=== PATIENT | female | born 1985 | race African-American/Black ===

== ENCOUNTER 2023-10-15 14:16 | Emergency (ER) | payer MEDICAID, OTHER ==
[~2023-10-15] VITALS: Ht 167.6 cm; Wt 59.0 kg
[2023-10-15 14:21] VITALS: TEMP 99
[2023-10-15 14:42] VITALS: PULSE 74; RESP 18; O2SAT 98
[2023-10-15] MEDS: IPRATROPIUM BROMIDE (0.02%) 0.5MG/2.5ML NEB HHN STA (14:42)
[2023-10-15] MEDS: ALBUTEROL (0.083%) 2.5MG/3ML NEB HHN SCH (14:42)
[2023-10-15] MEDS: MAGNESIUM 2 G PREMIX 50 ML IV ONE (15:06)
[2023-10-15] MEDS: METHYLPREDNISOLONE SOD SUCC 125MG/2ML (ACT-O-VIAL) IV STA (15:06)
[2023-10-15 15:18] LABS: BASOPHILS % 0.6 % (0.0-2.0); EOSINOPHILS % 1.5 % (0.0-5.0); HEMATOCRIT. 33.7 % (36.0-48.0); HEMOGLOBIN. 11.6 g/dL (12.0-16.0); LYMPHOCYTES % 34.6 % (20.0-50.0); MEAN CORPUSCULAR HEMOGLOBIN 32.9 pg (28.0-32.0); MEAN CORPUSCULAR HGB CONC 34.4 g/dL (31.0-37.0); MEAN CORPUSCULAR VOLUME 95.6 fL (81.0-99.0); MEAN PLATELET VOLUME 8.1 fl (7.4-10.4); MONOCYTES % 6.3 % (2.0-8.0); PLATELET 181 x1000/uL (130-400); RED BLOOD CELL COUNT 3.52 mill/uL (4.2-5.4); RED CELL DISTRIBUTION WIDTH 14.8 % (11.6-14.6); WHITE BLOOD COUNT 6.5 x1000/uL (4.5-11.0)
[2023-10-15 15:25] LABS: CHLORIDE 110 mEq/L (98-107); POTASSIUM 3.2 mEq/L (3.5-5.1); SODIUM 137 mEq/L (136-145)
[2023-10-15 15:26] LABS: CARBON DIOXIDE 25 mEq/L (21-32)
[2023-10-15 15:27] LABS: CALCIUM 8.8 mg/dL (8.7-10.4)
[2023-10-15 15:31] LABS: CREATININE 0.6 mg/dL (0.6-1.0); GLUCOSE 87 mg/dL (70-105); HCG SCREEN NEGATIVE
[2023-10-15 15:32] LABS: UREA NITROGEN BLOOD 7 mg/dL (9-23)
[2023-10-15] MEDS: POTASSIUM CHLORIDE 20MEQ TABLET SR PO ONE (16:06)
[2023-10-15] MEDS ORDERED: ALBUTEROL (0.083%) 2.5MG/3ML NEB HHN STA (16:12)
[2023-10-15 18:15] VITALS: BP 103/48; PULSE 98; RESP 20
[2023-10-15] MEDS ORDERED: P20 MT (18:19)
[2023-10-15] MEDS ORDERED: ALBU90AE INH (18:19)
== END 2023-10-15 18:30 | disposition home or self-care (01) ==
LOC: ER 14:16 → CANBEDREQ 15:24 → ER 18:30
DX: J45.901 Unspecified asthma with (acute) exacerbation (principal); E87.6 Hypokalemia
CPT/HCPCS: 80048; 84703; 85025; 36415; 71045; 93005; 94644; 96365; 96375; 99285; J3475; J2930; Z7610 ×2

== ENCOUNTER 2023-12-27 09:46 | Emergency (ER) | payer OTHER ==
[~2023-12-27] VITALS: Ht 160 cm; Wt 66.0 kg
[~2023-12-27 09:46] MED LIST: ALBU90AE INH; P20 MT
[2023-12-27 10:01] VITALS: BP 100/62; PULSE 81; RESP 18; TEMP 98.4; O2SAT 95
[2023-12-27 10:26] LABS: BASOPHILS % 0.9 % (0.0-2.0); EOSINOPHILS % 1.2 % (0.0-5.0); HEMATOCRIT. 43.8 % (36.0-48.0); HEMOGLOBIN. 14.6 g/dL (12.0-16.0); MEAN CORPUSCULAR HEMOGLOBIN 32.6 pg (28.0-32.0); MEAN CORPUSCULAR HGB CONC 33.3 g/dL (31.0-37.0); MEAN CORPUSCULAR VOLUME 98.1 fL (81.0-99.0); MEAN PLATELET VOLUME 8.1 fl (7.4-10.4); MONOCYTES % 5.5 % (2.0-8.0); NEUTROPHILS % 56.4 % (40.0-76.0); PLATELET 298 x1000/uL (130-400); RED BLOOD CELL COUNT 4.46 mill/uL (4.2-5.4); RED CELL DISTRIBUTION WIDTH 14.4 % (11.6-14.6); WHITE BLOOD COUNT 7.3 x1000/uL (4.5-11.0)
[2023-12-27 10:31] LABS: CHLORIDE 106 mEq/L (98-107); POTASSIUM 3.7 mEq/L (3.5-5.1); SODIUM 133 mEq/L (136-145)
[2023-12-27 10:32] LABS: CARBON DIOXIDE 25 mEq/L (21-32)
[2023-12-27 10:33] LABS: CALCIUM 9.2 mg/dL (8.7-10.4)
[2023-12-27 10:37] LABS: CREATININE 0.7 mg/dL (0.6-1.0); GLUCOSE 61 mg/dL (70-105); HCG SCREEN POSITIVE; UREA NITROGEN BLOOD 8 mg/dL (9-23)
[2023-12-27 10:44] LABS: TROPONIN I HIGH SENSITIVITY < 4 ng/L (3.0-34)
[2023-12-27] MEDS: PREDNISONE 20MG TABLET PO ONE (10:45)
[2023-12-27] MEDS ORDERED: P20 PO (11:13)
== END 2023-12-27 11:43 | disposition home or self-care (01) ==
LOC: ER 09:46
DX: O99.511 Diseases of the respiratory system complicating pregnancy, first trimester (principal); J45.909 Unspecified asthma, uncomplicated; Z90.49 Acquired absence of other specified parts of digestive tract; Z3A.00 Weeks of gestation of pregnancy not specified; Z98.890 Other specified postprocedural states
CPT/HCPCS: 36415; 71045; 80048; 84484; 84703; 85025; 93005; 99285

== ENCOUNTER 2024-12-17 12:11 | Emergency (ER) | payer OTHER ==
[~2024-12-17] VITALS: Ht 149.9 cm; Wt 55.0 kg
[~2024-12-17 12:11] MED LIST changes: +P20 PO
[2024-12-17] MEDS: PREDNISONE 20MG TABLET PO ONE (13:35)
[2024-12-17] MEDS: IPRATROPIUM BROMIDE (0.02%) 0.5MG/2.5ML NEB HHN SCH (13:49)
[2024-12-17 13:50] VITALS: PULSE 74; RESP 18; O2SAT 100
[2024-12-17] MEDS: ALBUTEROL (0.083%) 2.5MG/3ML NEB HHN SCH (13:50)
[2024-12-17 14:02] LABS: BASOPHILS % 1.1 % (0.0-2.0); EOSINOPHILS % 5.2 % (0.0-5.0); HEMATOCRIT. 43.3 % (36.0-48.0); HEMOGLOBIN. 13.5 g/dL (12.0-16.0); LYMPHOCYTES % 51.9 % (20.0-50.0); MEAN PLATELET VOLUME 8.6 fl (7.4-10.4); MONOCYTES % 5.3 % (2.0-8.0); NEUTROPHILS % 36.5 % (40.0-76.0); PLATELET 240 x1000/uL (130-400); RED BLOOD CELL COUNT 4.93 mill/uL (4.2-5.4); RED CELL DISTRIBUTION WIDTH 18.5 % (11.6-14.6)
[2024-12-17 14:11] LABS: CREATININE 0.6 mg/dL (0.6-1.0); TROPONIN I HIGH SENSITIVITY < 4 ng/L (3.0-34)
[2024-12-17 14:12] LABS: UREA NITROGEN BLOOD < 5 mg/dL (9-23)
[2024-12-17 14:13] LABS: ASPARTATE AMINOTRANSFERASE 10 IU/L (<34)
[2024-12-17 14:14] LABS: BILIRUBIN DIRECT 0.1 mg/dL (<=3.0); BILIRUBIN TOTAL 0.6 mg/dL (0.1-1.0); PROTEIN TOTAL 6.8 g/dL (6.0-8.3)
[2024-12-17 15:58] LABS: HCG SCREEN NEGATIVE
[2024-12-17 16:20] VITALS: BP 102/61; PULSE 80; RESP 29; TEMP 36.9; O2SAT 93
[2024-12-17] MEDS ORDERED: IBUP-2029 MT (17:05)
== END 2024-12-17 17:48 | disposition home or self-care (01) ==
LOC: ER 12:11
DX: S83.91XA Sprain of unspecified site of right knee, initial encounter (principal); S93.601A Unspecified sprain of right foot, initial encounter; J45.909 Unspecified asthma, uncomplicated; R06.02 Shortness of breath; Z90.49 Acquired absence of other specified parts of digestive tract; Z98.890 Other specified postprocedural states; W01.0XXA Fall on same level from slipping, tripping and stumbling without subsequent striking against object, initial encounter; Y93.89 Activity, other specified; Y92.89 Other specified places as the place of occurrence of the external cause; Y99.8 Other external cause status
CPT/HCPCS: 80076; 80048; 84703; 83880; 85025; 85379; 84484; 36415; 71045; 73562; 73610; 94640; 93005; 99285; J7512; Z7610; 94070

== ENCOUNTER 2025-01-04 08:15 | Inpatient (IN) | payer MEDICAID, OTHER ==
[2025-01-04] VITALS (7 sets, daily range): BP systolic 98–114; BP diastolic 50–59; PULSE 65–95; RESP 18–22; TEMP 36.6–37.1; O2SAT 94–96
[~2025-01-04] VITALS: Ht 149.9 cm; Wt 62.7 kg
[~2025-01-04 08:15] MED LIST changes: +IBUP-2029 MT
[2025-01-04] MEDS: ALBUTEROL (0.083%) 2.5MG/3ML NEB HHN SCH (08:50)
[2025-01-04] MEDS: IPRATROPIUM BROMIDE (0.02%) 0.5MG/2.5ML NEB HHN SCH (08:50)
[2025-01-04] MEDS: METHYLPREDNISOLONE SOD SUCC 125MG/2ML (ACT-O-VIAL) IV ONE ×2 (09:46→13:06)
[2025-01-04 10:09] LABS: BASOPHILS % 1.0 % (0.0-2.0); EOSINOPHILS % 3.3 % (0.0-5.0); HEMATOCRIT. 42.3 % (36.0-48.0); HEMOGLOBIN. 13.8 g/dL (12.0-16.0); LYMPHOCYTES % 47.7 % (20.0-50.0); MEAN PLATELET VOLUME 8.7 fl (7.4-10.4); MONOCYTES % 5.8 % (2.0-8.0); NEUTROPHILS % 42.2 % (40.0-76.0); PLATELET 197 x1000/uL (130-400); RED BLOOD CELL COUNT 4.91 mill/uL (4.2-5.4); RED CELL DISTRIBUTION WIDTH 19.9 % (11.6-14.6)
[2025-01-04 10:13] LABS: CREATININE 0.6 mg/dL (0.6-1.0); UREA NITROGEN BLOOD 7 mg/dL (9-23)
[2025-01-04 10:14] LABS: TROPONIN I HIGH SENSITIVITY < 4 ng/L (3.0-34)
[2025-01-04] MEDS ORDERED: ALBUTEROL (0.083%) 2.5MG/3ML NEB HHN SCH (12:15)
[2025-01-04] MEDS ORDERED: IPRATROPIUM BROMIDE (0.02%) 0.5MG/2.5ML NEB HHN SCH (12:15)
[2025-01-04] MEDS ORDERED: IPRATROPIUM/ALBUTEROL 0.5-3(2.5)MG/3ML NEB HHN PRN (12:30)
[2025-01-04] MEDS ORDERED: MAGNESIUM/ALUMINUM HYDROXIDE/SIMETHICONE 30ML UDC PO PRN (12:30)
[2025-01-04] MEDS ORDERED: CLONIDINE 0.1MG TABLET PO PRN (12:30)
[2025-01-04] MEDS ORDERED: ONDANSETRON HCL 4MG/2ML INJ IV PRN (12:30)
[2025-01-04] MEDS ORDERED: DOCUSATE SODIUM 100MG CAPSULE PO PRN (12:30)
[2025-01-04] MEDS ORDERED: ACETAMINOPHEN 325MG TABLET PO PRN (12:30)
[2025-01-04] MEDS ORDERED: GUAIFENESIN 200MG/10ML SUGAR FREE UDC PO PRN (12:30)
[2025-01-04] MEDS: MAGNESIUM 2 G PREMIX 50 ML IV NR (13:06)
[2025-01-04] MEDS: IPRATROPIUM/ALBUTEROL 0.5-3(2.5)MG/3ML NEB HHN SCH (16:12)
[2025-01-04] MEDS: ENOXAPARIN 40MG/0.4ML SYR SUBCUT SCH (16:17)
[2025-01-04] MEDS: METHYLPREDNISOLONE SOD SUCC 40MG/ML (ACT-O-VIAL) IV SCH (17:28)
[2025-01-04 18:55] LABS: CLARITY URINE CLEAR (CLEAR); COLOR URINE YELLOW (YELLOW); GLUCOSE URINE NEGATIVE (NEGATIVE); KETONES URINE NEGATIVE (NEGATIVE); LEUKOCYTE ESTERASE URINE NEGATIVE (NEGATIVE); NITRITE URINE NEGATIVE (NEGATIVE); OCCULT BLOOD URINE NEGATIVE (NEGATIVE); PH URINE 7.0 (4.5-8.0); PROTEIN URINE NEGATIVE (NEGATIVE); SPECIFIC GRAVITY URINE 1.019 (1.005-1.030); UROBILINOGEN URINE 1.0 E.U./dL (0.2-1.0)
[2025-01-04 19:03] LABS: *AMPHETAMINES SCREEN URINE NEGATIVE (NEGATIVE); *BARBITURATES SCREEN URINE NEGATIVE (NEGATIVE); *BENZODIAZEPINES SCREEN URINE NEGATIVE (NEGATIVE); *COCAINE SCREEN URINE NEGATIVE (NEGATIVE); METHADONE URINE SCREEN NEGATIVE (NEGATIVE)
[2025-01-04 19:04] LABS: CANNABINOID URINE SCREEN NEGATIVE (NEGATIVE); ECSTASY MDMA SCREEN URINE NEGATIVE (NEGATIVE); OPIATES URINE SCREEN NEGATIVE (NEGATIVE); PHENCYCLIDINE URINE SCREEN NEGATIVE (NEGATIVE)
[2025-01-04] MEDS: ACETAMINOPHEN 325MG TABLET PO PRN (23:42)
[2025-01-05 01:35] VITALS: PULSE 85; RESP 16; O2SAT 98
[2025-01-05 04:00] VITALS: BP 96/56; PULSE 94; RESP 18; TEMP 36.2; O2SAT 95
[2025-01-05 07:01] LABS: BASOPHILS % 0.5 % (0.0-2.0); EOSINOPHILS % 0.0 % (0.0-5.0); HEMATOCRIT. 38.1 % (36.0-48.0); HEMOGLOBIN. 12.5 g/dL (12.0-16.0); LYMPHOCYTES % 10.7 % (20.0-50.0); MEAN PLATELET VOLUME 8.5 fl (7.4-10.4); MONOCYTES % 3.1 % (2.0-8.0); NEUTROPHILS % 85.7 % (40.0-76.0); PLATELET 187 x1000/uL (130-400); RED BLOOD CELL COUNT 4.46 mill/uL (4.2-5.4); RED CELL DISTRIBUTION WIDTH 19.5 % (11.6-14.6)
[2025-01-05 07:12] LABS: T4 FREE 0.94 ng/dL (0.89-1.76)
[2025-01-05 07:13] LABS: CREATININE 0.5 mg/dL (0.6-1.0); TRIGLYCERIDE 102 mg/dL (0-150); UREA NITROGEN BLOOD 10 mg/dL (9-23)
[2025-01-05 07:14] LABS: LDL CHOLESTEROL 138 mg/dL (5-100)
[2025-01-05 07:16] LABS: PHOSPHORUS 2.7 mg/dL (2.5-4.9)
[2025-01-05 08:00] VITALS: BP 107/48; PULSE 87; RESP 20; TEMP 36.7; O2SAT 95
[2025-01-05] MEDS: MULTIVITAMINS,THER W-MINERALS TABLET PO SCH (08:43)
[2025-01-05] MEDS: PANTOPRAZOLE SODIUM 40 MG/VIAL IV SCH (08:43)
[2025-01-05 10:27] VITALS: PULSE 117; RESP 16; O2SAT 98
[2025-01-05 12:40] VITALS: BP 104/53; PULSE 77; RESP 20; TEMP 36.7; O2SAT 98
[2025-01-05] MEDS ORDERED: ALBU18HF2 IH (12:57)
[2025-01-05] MEDS ORDERED: BECL10.62 INH (12:57)
[2025-01-05] MEDS ORDERED: P20 MT (12:57)
[2025-01-05] MEDS ORDERED: AZIT500T8 MT (12:57)
[2025-01-05 12:58] VITALS: BP 104/53; PULSE 77; RESP 20; TEMP 98
== END 2025-01-05 14:27 | disposition home or self-care (01) | DRG 141 ==
LOC: ER 08:15 → 8WST 12:11 → EDBEDREQ 12:15 → EDBEDREQTM 12:15 → ENRESERV 13:16
PROVIDERS: ADMIT Internal Medicine; ATTEND Internal Medicine
DX: J45.901 Unspecified asthma with (acute) exacerbation (principal); J96.01 Acute respiratory failure with hypoxia; E78.5 Hyperlipidemia, unspecified; Z72.0 Tobacco use; Z79.51 Long term (current) use of inhaled steroids; Z79.899 Other long term (current) drug therapy; Z90.49 Acquired absence of other specified parts of digestive tract; Z91.148 Patient's other noncompliance with medication regimen for other reason
CPT/HCPCS: 36415; 71045; 80048; 80061; 80305; 81003; 83036; 83735; 84100; 84145; 84439; 84443; 84484; 85025; 87070; 93005; 94070; 94640; 94760; 96374; 99285; A4606; J1650; J2470; J2919; J3475